=== PATIENT | male | born 1990 | race Caucasian/White ===

== ENCOUNTER 2024-06-01 08:22 | Outpatient (CLI) | payer OTHER, SELFPAY ==
--- NOTE | ~2024-06-01 | XR_ITS ---
XR shoulder LT min 2V 06/01/2024 08:48 Indication: Left shoulder pain Procedure: 4 views left shoulder Comparison: No prior studies for comparison. Findings: There is grade 3 acromioclavicular separation. No fracture is identified. No soft tissue ab normality. Visualized aspects of the lungs are unremarkable. Impression: 1: Left grade 3 acromioclavicular separation. Reviewed, dictated and finalized at location B. Impression: 1: Left grade 3 acromioclavicular separation.
== END 2024-06-01 08:23 ==
DX: M25.512 Pain in left shoulder (principal)
CPT/HCPCS: 73030